=== PATIENT | male | born 2000 | race Caucasian/White ===

== ENCOUNTER 2022-11-01 15:48 | Emergency (ER) | payer BC ==
[~2022-11-01] VITALS: Ht 180.3 cm; Wt 55.3 kg
[2022-11-01] MEDS ORDERED: VALIUM (16:06)
[2022-11-01] MEDS ORDERED: diphenhydrAMINE 50 MG/1 ML VIAL ONE (16:12)
[2022-11-01] MEDS ORDERED: FAMOTIDINE. 20 MG/2 ML VIAL IV ONE ×2 (16:12→16:15)
[2022-11-01] MEDS ORDERED: diphenhydrAMINE 50 MG/1 ML VIAL IV ONE (16:15)
[2022-11-01] MEDS ORDERED: IV NORMAL SALINE 1000 ML BAG IV ONE (16:15)
[2022-11-01] MEDS ORDERED: FAMO10TA41 PO (16:43)
[2022-11-01] MEDS ORDERED: DIPH25TA25 PO (16:43)
--- NOTE | 2022-11-01 17:09 | NUR ---
IV removed. Catheter intact and site benign. Pressure and 4x4 gauze applied to site. No bleeding noted. Patient discharged to home by Dr Mckinnon in stable condition. Written and verbal after care instructions given. Patient verbalized understanding and compliance of instructions. Stressed follow up with primary doctor and kennel manager dog track/allergologist or return to ER for worsening s/s.
== END 2022-11-01 17:12 | disposition home or self-care (01) ==
LOC: ER 15:48
DX: T78.40XA Allergy, unspecified, initial encounter (principal); Z91.010 Allergy to peanuts; Z91.018 Allergy to other foods; Z88.8 Allergy status to other drugs, medicaments and biological substances; Z79.899 Other long term (current) drug therapy; Y92.89 Other specified places as the place of occurrence of the external cause
CPT/HCPCS: 99284; 96374; 96361; 96375; J1200; J3490; J7040; A4663